=== PATIENT | female | born 1970 | race Caucasian/White ===

== ENCOUNTER 2023-05-11 08:29 | Outpatient (RCR) | payer BC, SELFPAY ==
[2023-01-04 08:43] LABS: Estradiol Premenol Female <20 pg/mL
[2023-01-04 17:24] LABS: Follicle Stimulating Hormone 76.1 IU/L; Luteinizing Hormone, Serum 56.1 IU/L
--- NOTE | 2023-01-08 15:13 | ONC.NURNOTE ---
Reviewed Oncotype results with Dr. Quintero. Patient informed that her score was 16 and there is no apparent benefit for chemotherapy. Appointment scheduled for 01/13 at 9AM to discuss results further. Patient informed that we will place a referral to Radiation Oncology and they will call her to set up an appointment. Patient expresses concern about her lumpectomy incision. She denies redness, drainage, pain, fever, etc. But she feels that it is taking a long time to heal and almost looks like it is going to open up. I encouraged her to call her surgeons office to see if they feel she should be evaluated. Patient verbalizes understanding.
[2023-02-20 11:10] LABS: Estradiol Premenol Female <20 pg/mL
[2023-02-20 21:51] LABS: Luteinizing Hormone, Serum 49.3 IU/L
[2023-05-11 15:36] LABS: Basophils Absolute Auto 0.05 K/uL (0.00-0.30); Basophils Percent Auto 0.6 % (0.0-3.0); Eosinophils Absolute Auto 0.29 K/uL (0.00-0.50); Eosinophils Percent Auto 3.6 % (0.0-7.0); Hemoglobin* 13.4 gm/dL (12.0-16.0); Immature Granulocytes Abs Auto 0.05 K/uL (0.00-0.30); Immature Granulocytes Pct Auto 0.6 %; Lymphocytes Percent Auto 24.6 % (20-44); Mean Corpuscular HGB Conc 34 gm/dL (32-36); Mean Corpuscular Hemoglobin 29 pg (26-34); Mean Corpuscular Volume 86 fL (80-100); Monocytes Percent Auto 10.7 % (0.0-11.0); Neutrophils Absolute Auto 4.87 K/uL (1.7-7.0); Neutrophils Percent Auto 59.9 % (42.0-72.0); Platelet Count* 316 K/uL (140-440); Red Blood Count 4.63 m/uL (4.00-5.20); White Blood Count* 8.13 K/uL (4.50-11.00)
[2023-05-11 15:42] LABS: Slide Review Reflex No
[2023-05-11 15:54] LABS: Albumin* 4.5 g/dL (3.3-5.0); Chloride* 105 mmol/L (96-114); Sodium* 139 mmol/L (135-149)
[2023-05-11 15:55] LABS: Potassium* 3.8 mmol/L (3.6-5.1)
[2023-05-11 15:57] LABS: Alkaline Phosphatase* 103 U/L (40-150); Aspartate Amino Transferase* 56 U/L (12-35); Bilirubin Total* 0.5 mg/dL (0.1-1.5); Blood Urea Nitrogen* 14 mg/dL (7-30); Calcium* 9.4 mg/dL (8.4-10.6); Carbon Dioxide* 28 mmol/L (20-32); Creatinine* 0.7 mg/dL (0.5-1.5); Estimated Glomerular Filt Rate 102 ml/min; Glucose* 95 mg/dL (60-115); Lactate Dehydrogenase* 209 U/L (120-246); Total Protein* 7.5 g/dL (6.0-8.3)
[2023-05-11 15:58] LABS: Alanine Aminotransferase* 77 U/L (4-35)
== END 2023-06-30 23:59 | disposition home or self-care (01) ==
LOC: CCIC 08:29
PROVIDERS: PCP Nurse Practitioner Family; Referring Provider Nurse Practitioner Family; Visit Provider Internal Medicine Hematology & Oncology
DX: C50.912 Malignant neoplasm of unspecified site of left female breast (principal); Z17.0 Estrogen receptor positive status [ER+]; Z79.811 Long term (current) use of aromatase inhibitors; L59.8 Other specified disorders of the skin and subcutaneous tissue related to radiation; R23.2 Flushing; C91.10 Chronic lymphocytic leukemia of B-cell type not having achieved remission
CPT/HCPCS: 36415; 80053; 82670; 83001; 83002; 83615; 85025; 99202; 99204; 99205; 99212; 99214; 99215

== ENCOUNTER 2023-11-26 14:00 | Outpatient (RCR) | payer BC, SELFPAY ==
[2023-08-24 14:56] LABS: Basophils Absolute Auto 0.04 K/uL (0.00-0.30); Basophils Percent Auto 0.5 % (0.0-3.0); Eosinophils Absolute Auto 0.26 K/uL (0.00-0.50); Eosinophils Percent Auto 3.1 % (0.0-7.0); Hematocrit 39.5 % (33.0-51.0); Hemoglobin* 13.2 gm/dL (12.0-16.0); Immature Granulocytes Abs Auto 0.08 K/uL (0.00-0.30); Lymphocytes Absolute Auto 2.19 K/uL (0.90-2.90); Lymphocytes Percent Auto 26.1 % (20-44); Mean Corpuscular HGB Conc 33 gm/dL (32-36); Mean Corpuscular Hemoglobin 29 pg (26-34); Mean Corpuscular Volume 87 fL (80-100); Neutrophils Absolute Auto 4.97 K/uL (1.7-7.0); Neutrophils Percent Auto 59.3 % (42.0-72.0); Platelet Count* 343 K/uL (140-440); Red Blood Count 4.54 m/uL (4.00-5.20); White Blood Count* 8.38 K/uL (4.50-11.00)
[2023-08-24 15:07] LABS: Albumin* 4.7 g/dL (3.3-5.0); Chloride* 103 mmol/L (96-114)
[2023-08-24 15:08] LABS: Sodium* 141 mmol/L (135-149)
[2023-08-24 15:10] LABS: Anion Gap 12 mEq/L (7-15); Aspartate Amino Transferase* 53 U/L (12-35); Bilirubin Total* 0.3 mg/dL (0.1-1.5); Carbon Dioxide* 26 mmol/L (20-32); Creatinine* 0.6 mg/dL (0.5-1.5); Estimated Glomerular Filt Rate 106 ml/min
[2023-08-24 15:11] LABS: Alanine Aminotransferase* 66 U/L (4-35); Alkaline Phosphatase* 120 U/L (40-150); Blood Urea Nitrogen* 11 mg/dL (7-30); Glucose* 105 mg/dL (60-115); Lactate Dehydrogenase* 218 U/L (120-246); Total Protein* 7.6 g/dL (6.0-8.3)
[2023-08-24 15:18] LABS: Slide Review Reflex No
[2023-08-24 16:37] LABS: Potassium* 3.7 mmol/L (3.6-5.1)
[2023-11-26 14:45] LABS: Basophils Absolute Auto 0.03 K/uL (0.00-0.30); Basophils Percent Auto 0.3 % (0.0-3.0); Eosinophils Absolute Auto 0.25 K/uL (0.00-0.50); Eosinophils Percent Auto 2.9 % (0.0-7.0); Hematocrit 40.8 % (33.0-51.0); Hemoglobin* 13.6 gm/dL (12.0-16.0); Immature Granulocytes Abs Auto 0.08 K/uL (0.00-0.30); Immature Granulocytes Pct Auto 0.9 %; Lymphocytes Percent Auto 26.5 % (20-44); Mean Corpuscular HGB Conc 33 gm/dL (32-36); Mean Corpuscular Hemoglobin 29 pg (26-34); Mean Corpuscular Volume 86 fL (80-100); Monocytes Percent Auto 9.6 % (0.0-11.0); Neutrophils Absolute Auto 5.19 K/uL (1.7-7.0); Neutrophils Percent Auto 59.8 % (42.0-72.0); Platelet Count* 338 K/uL (140-440); RDW Coefficient of Variation % 12.9 % (11.5-15.5); Red Blood Count 4.74 m/uL (4.00-5.20); White Blood Count* 8.68 K/uL (4.50-11.00)
[2023-11-26 14:49] LABS: Slide Review Reflex No
[2023-11-26 15:02] LABS: Albumin* 4.8 g/dL (3.3-5.0)
[2023-11-26 15:03] LABS: Chloride* 101 mmol/L (96-114); Potassium* 4.2 mmol/L (3.6-5.1); Sodium* 139 mmol/L (135-149)
[2023-11-26 15:05] LABS: Anion Gap 11 mEq/L (7-15); Bilirubin Total* 0.6 mg/dL (0.1-1.5); Carbon Dioxide* 27 mmol/L (20-32); Creatinine* 0.9 mg/dL (0.5-1.5); Estimated Glomerular Filt Rate 76 ml/min
[2023-11-26 15:06] LABS: Alanine Aminotransferase* 63 U/L (4-35); Alkaline Phosphatase* 112 U/L (40-150); Aspartate Amino Transferase* 45 U/L (12-35); Blood Urea Nitrogen* 15 mg/dL (7-30); Glucose* 100 mg/dL (60-115); Lactate Dehydrogenase* 199 U/L (120-246)
== END 2024-02-20 23:59 | disposition home or self-care (01) ==
LOC: CCIC 14:00
PROVIDERS: PCP Nurse Practitioner Family; Referring Provider Nurse Practitioner Family; Visit Provider Physician Assistant
DX: C50.912 Malignant neoplasm of unspecified site of left female breast (principal); Z17.0 Estrogen receptor positive status [ER+]; Z79.811 Long term (current) use of aromatase inhibitors; C91.10 Chronic lymphocytic leukemia of B-cell type not having achieved remission; R23.2 Flushing; L81.9 Disorder of pigmentation, unspecified; L98.9 Disorder of the skin and subcutaneous tissue, unspecified; R79.89 Other specified abnormal findings of blood chemistry; K76.0 Fatty (change of) liver, not elsewhere classified
CPT/HCPCS: 36415; 80053; 83615; 85025; 99212; 99214; 99215; G0463

== ENCOUNTER 2024-02-09 16:52 | Outpatient (CLI) | payer BC, SELFPAY ==
--- OUTSIDE RECORDS SUMMARY | 2024-02-09 16:55 | XMS_ITS | Clinical Summary ---
Author Name Unknown Organization [facility] Address [place], [place] [address] Care Team Providers Care Fios Line Installer Name Role Phone Carol Medina NP Primary Care Provider Rin Deras MD Unavailable [phone] Tova Bee NP Unavailable Apolonia Macias RN Unavailable Allergies Active Allergy Reactions Criticality Noted Date Comments Morphine Headache Medium 03/22/2014 Extreme headache Medications Medication Sig Dispensed Refills Start Date End Date Status omeprazole (PRILOSEC) 20 mg Delayed-Release capsuleIndications:Ch ronic GERD Take 1 Capsule (20 mg) by mouth once daily before a meal. 180 Capsule 1 07/24/2022 Active cyanocobalamin (VITAMIN B12) 500 mcg tablet Take 500 mcg by mouth once daily. Active cholecalciferol (VITAMIN D3) 2,000 unit capsule Take 2,000 units by mouth once daily. Active gabapentin (NEURONTIN) 100 mg capsuleIndications:Pr otrusion of lumbar intervertebral disc Take 1 capsule in am and 3 capsules at bedtime. 120 Capsule 12/04/2022 Active Active Problems Problem Noted Date Diagnosed Date Other hyperlipidemia 07/25/2022 Lung nodule 06/20/2021 Overview: Recommend f/u CT lung 12 months. CLL (chronic lymphocytic leukemia) (HC)--[facility] sta ge 1 03/31/2021 Overview: Does not want family to know. Please do not discuss during review of problem list for visits Followed by oncology, onset 2019 Calculus of gallbladder with acute on chronic cholecystitis without obstruction 03/31/2021 Status post laparoscopic cholecystectomy 021 Status post laparoscopic appendectomy 03/31/2021 Disorder of appendix 03/30/2021 Status post left carpal tunnel release DOS Dr Márquez 05/07/2020 Carpal tunnel syndrome, bilateral 04/04/2020 Carpal tunnel syndrome on right 04/04/2020 S/P partial thyroidectomy 08/17/2017 Vitamin D deficiency 07/15/2010 Encounter for screening colonoscopy Gastritis Breast nodule Resolved Problems Problem Noted Date Diagnosed Date Resolved Date Gallstones 04/02/2015 03/31/2021 Immunizations Name Administration Dates Next Due COVID-19 vaccine ([id number]-J&J) NORBERTO SPIVEY COVID-19 vaccine ([employer] 30mcg/0.3mL) 12YO+ BIVALENT NORBERTO SPIVEY 07/24/2022 Pneumococcal Conj 20-valent (Prevnar 20) 022 Pneumococcal Poly,23-Valent (Pneumovax) 08/17/20 17 Td (Age >=7 Years) 07/05/2020 Tdap 07/15/2010 Zoster (Shingrix-RZV, recombinant) 09/05/2020, Family History Medical History Relation Name Comments Hypertension Brother 3 Hyperlipidemia Brother 4 Hyperlipidemia Father Hypertension Father Other Father Seizures Maternal Aunt Diabetes Maternal Grandfather Heart Disease Maternal Grandfather Hypertension Mother Other Mother Cancer-colon Paternal Aunt 1 50s Diabetes Paternal Aunt 2 Other Paternal Grandfather brain a nerisum Other Paternal Grandmother stomach e anerisum Cancer-breast No Family History Relation Name Status Comments Brother 1 Alive Brother 2 Alive Brother 3 Brother 4 Father Alive kidney stones Maternal Aunt Maternal Grandfather Maternal Grandmother Mother Alive kidney stones Paternal Aunt 1 Paternal Aunt 2 Paternal Grandfather Paternal Grandmother Son 1 Alive Son 2 Alive Social History Tobacco Use Types Packs/Day Years Used Date Smoking Tobacco: Former Cigarettes Q uit: 10/15/2019 Smokeless Tobacco: Never Tobacco Cessation:Counseling Given: Not Answered Comments:thinks about quitting someday Alcohol Use Standard Drinks/Week Comments Yes 0 (1 standard drink = 0.6 oz pur e alcohol) social PHQ-2 Answer Date Recorded PHQ-2 TOTAL SCORE 0 07/24/2022 Social Connections Answer Date Recorded Frequency of Communication with Friends and Fami ly Not on file 10/05/2021 Financial Resource Strain Answer Date R ecorded Difficulty of Paying Living Expenses Not on file 10/05/2021 Difficulty of Paying Living Expenses Not on file 10/05/2021 Sex and Gender Information Value Date Recorded Sex Assigned at Not on file Gender Identity Not on file Sexual Orientation Not on file Obstetrics History Last Filed Vital Signs Vital Sign Reading Time Taken Comments Blood Pressure 138/86 12/24/2022 9:11 AM CDT Pulse 92 12/24/2022 9:11 AM CDT Temperature 36.7 ??C (98.1 ??F) 12/24/2022 9:11 AM CD T Respiratory Rate 16 12/10/2022 4:23 PM BEHAVIORAL HEALTH ASSOCIATE Oxygen Saturation 93% 12/10/2022 4:23 PM BEHAVIORAL HEALTH ASSOCIATE Inhaled Oxygen Concentration - - Weight 94.6 kg (208 lb 9.6 oz) 12/24/2022 9:11 A M CDT Height 172.7 cm (5' 8) 12/10/2022 10:34 AM BEHAVIORAL HEALTH ASSOCIATE Body Mass Index 31.72 12/10/2022 10:34 AM BEHAVIORAL HEALTH ASSOCIATE Plan of Treatment Health Maintenance Due Date Last Done Comments HIV for age 15-65 1983 COVID-19 vaccine series ( season) 2023 07/24/2022, 08/15/2021, 01/02/2021 Depression screening for age 12+ 07/25/2023 07/25/2022, 07/24/2022, 07/06/2020, Additional history exists Mammogram for age 45-75 11/24/2023 11/24/19, 07/11/2022, 07/03/2021, Additional history exists BMI (ht and wt on same day) for age 18+ 11/28/2023 11/28/2022, 10/01/2022, 09/16/2022, Additional history exists Influenza for age 50-64 06/05/2024 Lipids for age 45-75 07/24/2027 07/24/2022, 07/04/2021, 07/05/2020, Additional history exists Colonoscopy through age 75 05/06/2028 05/06/2018 Tetanus booster 07/05/2030 07/05/2020, 07/15/2010 Tdap Completed 07/15/2010 Zoster (shingles) series for age 50+ Completed 09/05/2020, 07/05/2020 Hepatitis C screening for ag e 18-79 Completed 07/24/2022 Pneumococcal series for age 6-64 Completed 07/24/20, 08/17/2017 Procedures Procedure Name Priority Date/Time Associated Diagnosis Comments XR MAMMO ANDRE BILAT DIAG DEXTER 11/24/2022 12:24 PM BEHAVIORAL HEALTH ASSOCIATE Primary cancer of left breast (HC) ANTI HCV Routine 07/24/2022 3:12 PM CDT Need for hepatitis C screening test LIPID PANEL W REFLEX MEASURED LDL Routine 07/24/2022 3:12 PM CDT Routine general medical examination at health care facility COLONOSCOPY 05/06/2018 8:29 AM CDT from Last 3 Months or Most Recently Relevant to Health Maintenance Results * XR MAMMO ANDRE DIAG BILAT (11/24/2022 12:24 PM BEHAVIORAL HEALTH ASSOCIATE) Anatomical Region Laterality Modality BREASTS, Breast Left, Breast Right Bilateral Mammography 11/24/2022 1:13 PM BEHAVIORAL HEALTH ASSOCIATE Narrative 11/25/2022 7:57 AM BEHAVIORAL HEALTH ASSOCIATE As a result of the Century Cures Act, medical imaging exams and procedure reports are released immediately into your electronic medical record. ??You may view this report before your referring provider. ??If you have questions, please contact your health care provider. BILATERAL BREAST MAMMOGRAM DIGITAL DIAGNOSTIC WITH COMPUTER-AIDED DETECTION AND TOMOSYNTHESIS 11/24/2022 ?? BILATERAL BREAST ULTRASOUND 11/24/2022 LEFT AXILLA ULTRASOUND 11/24/2022 CLINICAL HISTORY: New diagnosis LEFT breast cancer by surgical excision. Margins positive. Here today for MR biopsy of each breast but unable to tolerate MRI. Therefore, here for ultrasound of each breast and ultrasound LEFT axilla. Surgical excision LEFT breast was in the immediate subareolar tissue. COMPARISON: 07/11/2022, 07/03/2021, breast MRI 11/12/2022. TECHNIQUE: Digital BILATERAL mammogram in multiple projections. Computer-aided detection and tomosynthesis were used. Real-time ultrasound imaging of the RIGHT and LEFT breast and LEFT axilla with imaging documentation. Scanning was performed by both the technologist and the radiologist. BREAST COMPOSITION: There are scattered areas of fibroglandular density. FINDINGS: BILATERAL mammogram: RIGHT breast: Possible mass RIGHT upper outer breast. This mass is adjacent to a small calcification. Location 5 cm from the nipple on the CC view. LEFT breast: Focal asymmetry LEFT upper outer breast lateral to the surgical site extending approximately 3 cm. RIGHT breast ultrasound: RIGHT breast ultrasound targeted to the 9 o'clock position 3 cm from the nipple shows a solid mass 0.6 x 0.6 x 0.6 cm. I believe this is the correlate for the MRI-detected mass. Margins are indistinct. LEFT breast ultrasound: Ultrasound targeted to the upper outer LEFT breast shows a vague area of shadowing with correlates with the MR enhancement. Most prominent this is at 2 o'clock 2 cm from the nipple. Ultrasound LEFT axilla: Multiple lymph nodes are present in the LEFT axilla. Minimal cortical thickening. No suspicious or dominant lymph node identified. IMPRESSION AND RECOMMENDATION: 1. RIGHT breast mass 9 o'clock 3 cm from the nipple 0.6 x 0.6 x 0.6 cm. Ultrasound-guided biopsy to follow. 2. Vague shadowing LEFT breast in the area of MRI enhancement ultrasound-guided biopsy to follow. Location 2 o'clock 2 cm from the nipple. 3. Increased number normal nodes LEFT axilla. Biopsy is not recommended. Recommend sampling with sentinel lymph node study at time of surgery. Results and recommendations were discussed with the patient at the time of the exam. BI-RADS Category 4: Suspicious Dictated by: Xochitl Hyman MD @11/24/2022 1:13:13 PM/meet PATIENTS: You will also receive a letter with your examination results in an easy to read format. ??If you have questions about your results, please contact your referring provider. Hollie Cowart MD MAMMO * (ABNORMAL) LIPID PANEL W REFLEX MEASURED LDL (07/24/2022 3:12 PM CDT) CHOLESTEROL,TOTAL 240(H) 100 - 199 mg/dL 07/24/2022 4:09 PM CDT [facility] TRIGLYCERIDES 300(H) <150 mg/dL 07/24/2022 4:09 PM CDT [facility] HDL CHOLESTEROL 49 >40 mg/dL 4:09 PM CDT [facility] NON-HDL CHOLESTEROL 191(H) <145 mg/dl 07/24/2022 4:09 PM CDT [facility] CHOL/HDL RATIO 4.90(H) <4.50 07/24/2022 4:09 PM CDT [facility] LDL CHOLESTEROL 131(H) <=130 mg/dL 07/24/2022 4:09 PM CDT [facility] VLDL CHOLESTEROL 60(H) <=30 mg/dL 07/24/2022 4:09 PM CDT [facility] PROVIDER ORDERED STATUS RANDOM 07/24/2022 4:09 PM CDT [facility] Blood BLOOD SPECIMEN / Unknown Venipuncture / Unknown 07/24/2022 3:12 PM CDT 07/24/2022 3:14 PM CDT Carol Medina NP CHEMISTRY [facility] [address] [place] [address] * ANTI HCV (07/24/2022 3:12 PM CDT) HEPATITIS C ANTIBODY Non-React yong Non-React yong 07/26/2022 5:26 PM CDT [facility] Comment:Antibodies to HCV no t detected; does not exclude the possibility of exposure to HCV. Blood BLOOD SPECIMEN / Unknown Venipuncture / Unknown 07/24/2022 3:12 PM CDT 07/24/2022 3:14 PM CDT Carol Arendt CARDIOLOGY RN SEND OUTS [facility] [address] [place] [address], [place] * COLONOSCOPY (05/06/2018 8:29 AM CDT) 05/06/2018 8:29 AM CDT Narrative Transcriptions Rory Alvarez MD - 05/06/2018 9:08 AM CDT Patient Name: Kenyetta Nava Procedure Date: 05/06/2018 Gender: Female Date of : 1970 Admit Type: Ambulatory Procedure: Colonoscopy Proceduralist: Rory Alvarez [facility] Indications/Pre-Op Diagnosis: Screening for colorectal malignantneoplasm Medications: Midazolam 6 mg IV, Fentanyl 100 microgramsIV Procedure Description: The patient had risks, benefits and alternatives explained to andgave informed consent. The patient had a stable cardiopulmonary status and judged an adequate candidate for conscious sedation. The colonoscope was passed through the anus and advanced to thececum, identified by appendiceal orifice and ileocecal valve. Thecolonoscopy was performed without difficulty. The patient tolerated the procedure well. The quality of the bowel preparation was good. The ileocecal valve, appendiceal orifice, and rectum were photographed. Complications: No immediate complications. Estimated Blood Loss & Specimen: Estimated blood loss: none. Specimen collected - None Findings: The perianal and digital rectal examinations were normal. The retroflexed view of the distal rectum and anal verge was normaland showed no anal or rectal abnormalities. The colon (entire examined portion) appeared normal. Impressions/Post-Op Diagnosis: - The entire examined colon is normal. - No specimens collected. Recommendation: - Discharge patient to home. - Resume previous diet. - Continue present medications. - Repeat colonoscopy in 10 years for surveillance. Moderate Sedation: Moderate (conscious) sedation was administered by the endoscopy nurse and supervised by the endoscopist. The following parameters were monitored: oxygen saturation, heart rate, respiratory rate, adequacyof pulmonary ventilation and reponse to care. Please refer to the patient's medical record flowsheets for moderate sedation details. please see sedation report above. Sedation was given under thedirection of the endoscopist. Moderate (conscious) sedation was administered by the endoscopy nurse and supervised by the endoscopist. The following parameters were monitored: oxygen saturation, heart rate, blood pressure, andresponse to care. Total physician intraservice time was 20 minutes. please see sedation report above. Sedation was given under thedirection of the endoscopist. Rory Alvarez, 05/06/2018 9:08:02 AM This report has been signed electronically. Note Initiated On: 05/06/2018 8:29 AM Rory Alvarez MD PROCEDURE ORD from Last 3 Months or Most Recently Relevant to Health Maintenance Advance Directives * Full Code (Latest Code Status on File) Date Activated Date Inactivated Comments 12/10/2022 10:35 AM 12/10/2022 7:01 PM Question Answer Comments Code Status Discussion: Unable to Assess Preferences, Provider to review later * Full Code Date Activated Date Inactivated Comments 11/04/2022 6:13 AM 11/04/2022 12:17 PM Question Answer Comments Code Status Discussion: Unable to Assess Preferences, Provider to review later * Full Code Date Activated Date Inactivated Comments 08/13/2021 6:43 AM 08/13/2021 1:00 PM Question Answer Comments Code Status Discussion: Discussed * Full Code Date Activated Date Inactivated Comments 03/31/2021 12:55 AM 03/31/2021 6:26 PM Question Answer Comments Code Status Discussion: Discussed * Full Code Date Activated Date Inactivated Comments 05/23/2020 6:23 AM 05/23/2020 10:49 AM Care Teams Fios Line Installer Relationship Specialty Start Date End Date Carol Medina NP [address] [place] [address] PCP - General Nurse Practitioner 03/10/19 Rin Deras MD [address] [place] [address] Hematology Hematology and Oncology 07/17/20 Tova Bee NP [address] [place] [address] Hematology Hematology and Oncology 07/17/20 Apolonia Macias, RN [address] [place] [address] Nurse Navigator - Oncology Registered Nurse 11/14/22
--- OUTSIDE RECORDS SUMMARY | 2024-02-09 16:55 | XMS_ITS | Clinical Summary ---
Author Name Unknown Organization [facility] Address [address] [place] [address] Care Team Providers Care Improvement Rn Name Role Phone Unavailable Primary Care Provider Unavailabl e Source Comments Patient records contain information from all sites at [facility]. For routine questions regarding patient records, call [phone] during business hours, M-F 8:00 AM - 5:00 PM Central Time. Record requests for emergency care only can be directed to [phone] at any time.[facility] Allergies Active Allergy Reactions Criticality Noted Date Comments Morphine Headache Medium 03/22/2014 Extreme headache Medications Medication Sig Dispensed Refills Start Date End Date Status omeprazole (PriLOSEC) [address] capsule Take 20 mg by mouth. 07/24/2022 Acti ve cyanocobalamin (VITAMIN B12) 500 mcg tablet Take 500 mcg by mouth. Active cholecalciferol (VITAMIN D3) 50 mcg (2,000 Unit) capsule Take 2,000 Units by mouth. Active mometasone (ELOCON) 0.1 % cream Apply 1 Application topically 2 (two) times a day. Apply to left breast and collar bone area. 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 Cancer Staging:Pathologic stage from 12/10/2022:Stage IIA(pT2, pN1a(sn), cM0, G3, ER+, GA+, HER2-) - Unsigned Resolved Problems Problem Noted Date Diagnosed Date Resolved Date Leukemia Lymphocytic Chronic Remission 01/16/2023 01/16/2023 Family History Medical History Relation Name Comments Colon cancer Aunt Breast cancer Neg Hx Relation Name Status Comments Aunt Social History Tobacco Use Types Packs/Day Years Used Date Smoking Tobacco: Former Cigarettes Q uit: 10/15/2019 Smokeless Tobacco: Never Tobacco Cessation:Counseling Given: Not Answered Nutrition Answer Date Recorded Nutrition: EVOO Fat Source Unknown 01/12 Nutrition: Servings of Fruits/Vegetables per Day Not on file 01/12/2023 Dental Answer Date Recorded Dental: Regular Dentist Unknown 01/13/20 Sex and Gender Information Value Date Recorded Sex Assigned at Not on file Gender Identity Not on file Sexual Orientation Not on file Last Filed Vital Signs Vital Sign Reading Time Taken Comments Blood Pressure 158/82 01/21/2023 3:20 PM CDT Pulse 102 01/21/2023 3:20 PM CDT Temperature 36.5 ??C (97.7 ??F) 02/17/2023 3:33 PM CD T Respiratory Rate - - Oxygen Saturation - - Inhaled Oxygen Concentration - - Weight 97.9 kg (215 lb 13.3 oz) 02/17/2023 3:33 PM CDT Height - - Body Mass Index - - Plan of Treatment Health Maintenance Due Date Last Done Comments CT Colonography 1970 Cologuard 1970 Colonoscopy 1970 Colorectal Cancer Screening 1970 FIT 1970 HIV Screening 1970 Hepatitis C Screening 1970 Hepatitis B Vaccines (1 of 3 - 19+ 3-dose series) 1987 COVID-19 Vaccine ( season) 2023 07/24/2022, 08/15/2021, 01/02/2021 Influenza Vaccine (#1) 2023 Depression Screening (Annual PHQ-2) 10/05/2023 Mammogram 11/24/2023 11/24/2022, 02/2 , 11/24/2022, Additional history exists Fasting Glucose for Diabetes Screening 11/25/2025 11/25/2022, 08/13/2022, 07/24/2022, Additional history exists Lipid (Cholesterol) Screening 07/24/2027 07/24/2022, 07/04/2021, 07/05/2020, Additional history exists DTaP,Tdap,and Td Vaccines (3 - Td or Tdap) 07/05/2030 07/05/2020, 07/15/2010 Zoster Vaccines Completed 09/05/2020, 07/05/2020 Pneumococcal vaccine (0-64 years) Completed 07/24/2022, 08/17/2017 HPV Vaccines Aged Out No longer eligi ble based on patient's age to complete this topic Procedures Procedure Name Priority Date/Time Associated Diagnosis Comments EXTI BASIC METABOLIC PANEL, S/P Routine 11/25/2022 6:41 AM DATA CONVERSION OPERATOR OUTSIDE MG MAMMOGRAM Routine 11/24/2022 12:10 PM DATA CONVERSION OPERATOR EXTI LIPID PANEL W REFLEX MEASURED LDL Routine 07/24/2022 3:12 PM CDT from Last 3 Months or Most Recently Relevant to Health Maintenance Results * XR MAMMO POST CLIP PLCMT BILAT-Outside Mammogram (11/24/2022 12:10 PM DATA CONVERSION OPERATOR) Narrative [facility] - 01/14/2023 7:51 AM CDT This order has been created and auto-finalized to support the import of outside images. If available, original interpretation can be found on the Media Tab in Chart Review, in Document Viewer, or as an image in QREADS. If a re-interpretation or overread is required please follow defined workflow. ?? Provider Not In System IMG BI PROCEDURES [facility] NA from Last 3 Months or Most Recently Relevant to Health Maintenance
--- OUTSIDE RECORDS SUMMARY | 2024-02-09 16:55 | XMS_ITS ---
Author Name Unknown Organization [facility] Address [address] [place] [address] Care Team Providers Care Staff Antisubmarine Officer Name Role Phone Unavailable Unavailable Unavailable Surgery Details Not on file Complications Check Surgery Details section. Procedure Estimated Blood Loss Check Surgery Details section. Procedure Findings Check Surgery Details section. Procedure Specimens Taken Check Surgery Details section.
--- OUTSIDE RECORDS SUMMARY | 2024-02-09 16:55 | XMS_ITS ---
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 Past Plans No past plan information found. Radiation Treatments * Plan Last Treated On Elapsed Days Fractions Treated Prescribed Fraction Dose Prescribed Total Dose [id number] 02/20/2023 24 4 of 4 250 cGy 1,000 cG y [id number] 02/16/2023 20 5 of 5 267 cGy 1,335 cGy [id number] 02/09/2023 13 10 of 10 267 cGy 2,670 cGy Reference Point Last Treated On Elapsed Days Session Dose Total Dose [id number] 02/20/2023 24 250 cGy 5,005 cGy Resolved Problems Problem Noted Date Diagnosed Date Resolved Date Leukemia Lymphocytic Chronic Remission 01/16/2023 01/16/2023
--- OUTSIDE RECORDS SUMMARY | 2024-02-09 16:55 | XMS_ITS | Referral Summary ---
Author Name Unknown Organization [facility] Address [address] [place] [address] Care Team Providers Care Job Training Supervisor Name Role Phone Unavailable Primary Care Provider Unavailabl e Source Comments Patient records contain information from all sites at [facility]. For routine questions regarding patient records, call [phone] during business hours, M-F 8:00 AM - 5:00 PM Central Time. Record requests for emergency care only can be directed to [phone] at any time.[facility] Allergies Active Allergy Reactions Criticality Noted Date [...] from 12/10/2022:Stage IIA(pT2, pN1a(sn), cM0, G3, ER+, [place]+, HER2-) - Unsigned Resolved Problems Problem Noted Date Diagnosed Date Resolved Date Leukemia Lymphocytic Chronic Remission 01/16/2023 01/16/2023 Social History Tobacco Use Types Packs/Day Years [...] Mass Index - - Plan of Treatment Not on file Procedures Procedure Name Priority Date/Time Associated Diagnosis Comments EXTI BASIC METABOLIC PANEL, S/P Routine 11/25/2022 6:41 AM TRANSPLANT CASE MANAGER OUTSIDE MG MAMMOGRAM Routine 11/24/2022 12:10 PM TRANSPLANT CASE MANAGER EXTI LIPID PANEL W REFLEX MEASURED LDL Routine 07/24/2022 3:12 PM CDT from Last 3 Months or Most Recently Relevant to Health Maintenance Results * XR MAMMO POST CLIP PLCMT BILAT-Outside Mammogram (11/24/2022 12:10 PM TRANSPLANT CASE MANAGER) Narrative [facility] - 01/14/2023 7:51 AM CDT [...]
--- NOTE | 2024-02-09 17:20 | MM_ITS ---
Patient: LILLI PACHECO Facility:?[facility] Patient ID:?[id number] Site Patient ID:?[id number] Site :?1970 Study:?XRay-Breast Bilateral 3D W/CAD-02/09/2024 2:46:14 PM Ordering Physician:Zeynep Barrios Final Report: BILATERAL SCREENING MAMMOGRAM WITH COMPUTER-AIDED DETECTION AND TOMOSYNTHESIS TECHNIQUE: CC and MLO views were obtained. These mammographic images have been obtained using full-field digital technique. These mammographic images were interpreted with the benefit of computer-aided detection. Breast Tomosynthesis was used in this interpretation. COMPARISON FILM: 11/24/22, 07/11/22, 07/03/21. FINDINGS: The breasts are heterogeneously dense, which may obscure small masses. IMPRESSION: There is no radiographic evidence for malignancy. ASSESSMENT: BI-RADS Category 2: Benign RECOMMENDATION: Routine screening mammogram in 1 year. A lay language report of this examination will be provided to the patient. Neptali Shane M.D. Diagnostic Radiologist [email or web address] DSM/sp R& Transcribed: 4:03 p.m. SP/Dictated by: Neptali Shane MD @ 02/15/2024 9:42:00 AM Signed by:?Neptali Shane MD @02/15/2024 5:13:42 PM (Electronic Signature)
== END 2024-02-09 16:53 | disposition home or self-care (01) ==
PROVIDERS: PCP Nurse Practitioner Family; Visit Provider Physician Assistant
DX: Z12.31 Encounter for screening mammogram for malignant neoplasm of breast (principal); R92.2 Inconclusive mammogram
CPT/HCPCS: 77063; 77067

== ENCOUNTER 2024-06-20 14:10 | Outpatient (RCR) | payer BC, SELFPAY ==
[2024-02-25 15:15] LABS: Basophils Absolute Auto 0.06 K/uL (0.00-0.30); Basophils Percent Auto 0.6 % (0.0-3.0); Eosinophils Absolute Auto 0.24 K/uL (0.00-0.50); Eosinophils Percent Auto 2.5 % (0.0-7.0); Hematocrit 40.2 % (33.0-51.0); Hemoglobin* 13.6 gm/dL (12.0-16.0); Immature Granulocytes Pct Auto 1.1 %; Lymphocytes Percent Auto 28.7 % (20-44); Mean Corpuscular HGB Conc 34 gm/dL (32-36); Mean Corpuscular Hemoglobin 29 pg (26-34); Mean Corpuscular Volume 86 fL (80-100); Monocytes Percent Auto 8.1 % (0.0-11.0); Neutrophils Absolute Auto 5.56 K/uL (1.7-7.0); Platelet Count* 321 K/uL (140-440); Red Blood Count 4.68 m/uL (4.00-5.20); White Blood Count* 9.42 K/uL (4.50-11.00)
[2024-02-25 15:16] LABS: Slide Review Reflex No
[2024-02-25 15:28] LABS: Chloride* 107 mmol/L (96-114); Sodium* 139 mmol/L (135-149)
[2024-02-25 15:29] LABS: Potassium* 3.9 mmol/L (3.6-5.1)
[2024-02-25 15:31] LABS: Alkaline Phosphatase* 98 U/L (40-150); Anion Gap 9 mEq/L (7-15); Aspartate Amino Transferase* 46 U/L (12-35); Bilirubin Total* 0.7 mg/dL (0.1-1.5); Blood Urea Nitrogen* 17 mg/dL (7-30); Carbon Dioxide* 23 mmol/L (20-32); Creatinine* 0.8 mg/dL (0.5-1.5); Est. Creatinine Clearance* 80.15; Estimated Glomerular Filt Rate 87 ml/min; Lactate Dehydrogenase* 192 U/L (120-246); Total Protein* 8.3 g/dL (6.0-8.3)
[2024-02-25 15:32] LABS: Alanine Aminotransferase* 59 U/L (4-35); Calcium* 9.4 mg/dL (8.4-10.6); Glucose* 100 mg/dL (60-115)
[2024-06-20 13:57] LABS: Basophils Absolute Auto 0.06 K/uL (0.00-0.30); Basophils Percent Auto 0.7 % (0.0-3.0); Eosinophils Absolute Auto 0.26 K/uL (0.00-0.50); Eosinophils Percent Auto 2.9 % (0.0-7.0); Hematocrit 40.2 % (33.0-51.0); Hemoglobin* 13.5 gm/dL (12.0-16.0); Immature Granulocytes Abs Auto 0.04 K/uL (0.00-0.30); Immature Granulocytes Pct Auto 0.4 %; Lymphocytes Absolute Auto 2.53 K/uL (0.90-2.90); Lymphocytes Percent Auto 27.9 % (20-44); Mean Corpuscular HGB Conc 34 gm/dL (32-36); Mean Corpuscular Hemoglobin 29 pg (26-34); Mean Corpuscular Volume 87 fL (80-100); Monocytes Percent Auto 8.6 % (0.0-11.0); Neutrophils Percent Auto 59.5 % (42.0-72.0); Platelet Count* 299 K/uL (140-440); RDW Coefficient of Variation % 12.9 % (11.5-15.5); Red Blood Count 4.64 m/uL (4.00-5.20); White Blood Count* 9.07 K/uL (4.50-11.00)
[2024-06-20 14:01] LABS: Slide Review Reflex No
[2024-06-20 14:23] LABS: Albumin* 4.7 g/dL (3.3-5.0); Chloride* 103 mmol/L (96-114); Potassium* 3.5 mmol/L (3.6-5.1); Sodium* 139 mmol/L (135-149)
[2024-06-20 14:25] LABS: Creatinine* 0.7 mg/dL (0.5-1.5); Est. Creatinine Clearance* 90.53; Estimated Glomerular Filt Rate 101 ml/min
[2024-06-20 14:26] LABS: Alanine Aminotransferase* 85 U/L (4-35); Alkaline Phosphatase* 115 U/L (40-150); Anion Gap 9 mEq/L (7-15); Aspartate Amino Transferase* 57 U/L (12-35); Bilirubin Total* 0.5 mg/dL (0.1-1.5); Blood Urea Nitrogen* 12 mg/dL (7-30); Carbon Dioxide* 27 mmol/L (20-32); Glucose* 101 mg/dL (60-115); Lactate Dehydrogenase* 200 U/L (120-246); Total Protein* 7.6 g/dL (6.0-8.3)
[2024-06-20 14:27] LABS: Calcium* 9.3 mg/dL (8.4-10.6)
--- NOTE | 2024-06-20 15:45 | ONC.NURNOTE ---
Labs faxed to Dr. Bloom at [facility] regarding pt's elevated LFTs. Pt started on Wegovy recently. Jyoti ordering liver ultrasound.
--- NOTE | 2024-07-14 13:37 | ONC.NURNOTE ---
Left message with pt regarding scheduling abd ultrasound. Radiology stated they have left a message with pt x2. Instructed pt to call and schedule ultrasound.
--- NOTE | 2024-07-25 15:38 | ONC.NURNOTE ---
Left message with pt to call for results of abdominal ultrasound. Per, Jyoit Prater PA-C, there is no evidence of cancer, pt should follow up with her primary care provider regarding her fatty liver.
== END 2024-08-23 23:59 | disposition home or self-care (01) ==
LOC: CCIC 14:10
PROVIDERS: PCP Nurse Practitioner Family; Referring Provider Nurse Practitioner Family; Visit Provider Physician Assistant
DX: C50.912 Malignant neoplasm of unspecified site of left female breast (principal); C91.10 Chronic lymphocytic leukemia of B-cell type not having achieved remission; R23.2 Flushing; R79.89 Other specified abnormal findings of blood chemistry; K76.0 Fatty (change of) liver, not elsewhere classified; Z79.811 Long term (current) use of aromatase inhibitors; Z17.0 Estrogen receptor positive status [ER+]
CPT/HCPCS: 36415; 80053; 83615; 85025; 99215; G0463

== ENCOUNTER 2024-07-21 07:10 | Outpatient (CLI) | payer BC, SELFPAY ==
--- OUTSIDE RECORDS SUMMARY | 2024-07-21 07:13 | XMS_ITS | Clinical Summary ---
Author Organization [employer] [facility] [employer] [facility] Address [place], [place] [address] Care Team Providers Care Concrete Vibrator Operator Name Role Phone Rin Deras MD Unavailable [phone] Tova Bee NP Unavailable Apolonia Macias RN Unavailable Rochelle Jimenez MD Primary Care Provider Allergies Active Allergy Reactions Criticality Noted Date Comments Morphine Headache Medium 03/22/2014 Extreme headache Medications Medication Sig Dispensed Refills Start Date End Date Status cyanocobalamin (VITAMIN B12) 500 mcg tablet Take 500 mcg by mouth once daily. Active cholecalciferol (VITAMIN D3) 2,000 unit capsule Take 2,000 units by mouth once daily. Active anastrozole (ARIMIDEX) 1 mg tablet Take 1 mg by mouth once daily. 4 Active oxybutynin (DITROPAN) 5 mg tablet Take 5 mg by mouth two times daily. 4 Active semaglutide (Wegovy) 0.25 mg/0.5 mL penIndications:Ob esity (BMI 30.0-34.9) Inject 0.25 mg subcutaneous once weekly. 2 mL 4 Active semaglutide, weight loss, (Wegovy) 0.5 mg/0.5 mL penIndications:Ob esity (BMI 30.0-34.9) Inject 0.5 mg subcutaneous once weekly. 2 mL 4 Active semaglutide, weight loss, (Wegovy) 1 mg/0.5 mL penIndications:Ob esity (BMI 30.0-34.9) Inject 1 mg subcutaneous once weekly. 2 mL 4 Active semaglutide, weight loss, (Wegovy) 2.4 mg/0.75 mL penIndications:Ob esity (BMI 30.0-34.9) Inject 2.4 mg subcutaneous once weekly. 3 mL 8 4 Active omeprazole (PRILOSEC) 20 mg Delayed-Release capsuleIndication s:Chronic GERD Take 1 Capsule (20 mg) by mouth two times daily before meals. 200 Capsule 3 4 Active Wegovy 1.7 mg/0.75 mL subcutaneous penIndications:Ob esity (BMI 30.0-34.9) INJECT 1.7 MG UNDER THE SKIN ONCE WEEKLY 3 mL 4 Active semaglutide, weight loss, (Wegovy) 1.7 mg/0.75 mL penIndications:Ob esity (BMI 30.0-34.9) Inject 1.7 mg subcutaneous once weekly. 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 CLL (chronic lymphocytic leukemia) (HC)--Kamara sta ge 1 03/31/2021 Overview (08/05/2021): Does not want family to know. Please [...] Diagnosed Date Resolved Date Gallstones 04/02/2015 03/31/2021 Encounters Date Type Department Care Team Description 07/14/2024 Refill [facility] [address] [place] [address] Rochelle Jimenez MD Refill Request (Wegovy) 06/22/2024 Telephone [facility] [address] [place] [address] Rochelle Jimenez MD Appointment Reminder 06/20/2024 Orders Only [facility] Scanner 1 scan: (1-Ord) [facility], MULTIPLE LAB RESULTS, 06/20/2024 from Last 3 Months Immunizations Name Administration Dates Next Due COVID-19 vaccine (Adele-J&J) NORBERTO SPIVEY COVID-19 vaccine (Edevate-Bio NTech 30mcg/0.3mL) 12YO+ BIVALENT NORBERTO SPIVEY 07/24/2022 Pneumococcal [...] of Communication with Friends and Fami ly 0 03/30/2024 Financial Resource Strain Answer Date R ecorded Difficulty of Paying Living Expenses 3 03/30/2024 Difficulty of Paying Living Expenses Not on file 03/30/2024 Food Insecurity Answer Date Recorded Worried About Running Out of Food in the Last Ye ar 1 03/30/2024 Transportation Needs Answer Date Record ed Lack of Transportation (Medical) 1 03/30/2024 Housing Stability Answer Date Recorded Unable to Pay for Housing in the Last Year 1 03/30/2024 Sex and Gender Information Value Date Recorded Sex Assigned at Not on file Gender Identity Not on file Sexual Orientation Not on file Obstetrics History Last Filed Vital Signs Vital Sign Reading Time Taken Comments Blood Pressure 118/77 03/30/2024 1:46 PM CDT Pulse 94 03/30/2024 1:46 PM CDT Temperature 36.7 ??C (98.1 ??F) 12/24/2022 9:11 AM CD T Respiratory Rate 16 12/10/2022 4:23 PM CLOTHES PRESSER Oxygen Saturation 97% 03/30/2024 1:46 PM CDT Inhaled Oxygen Concentration - - Weight 96 kg (211 lb 9.6 oz) 03/30/2024 1:46 PM CDT Height 173.4 cm (5' 8.25) 03/30/2024 1:46 PM CD T Body Mass Index 31.94 03/30/2024 1:46 PM CDT Plan of Treatment Upcoming Encounters Date Type Department Care Team (Late st Contact Info) Description 07/25/2024 3:35 PM CDT Office Visit [facility] [address] [place] [address] Rochelle Jimenez MD [address] [place] [address] Health Maintenance Due Date Last Done Comments HIV for age 15-65 1983 Depression screening for age 12+ 07/25/2023 07/25/2022, 07/24/2022, 07/06/2020, Additional history exists COVID-19 vaccine series ( season) 2024 07/24/2022, 08/15/2021, 01/02/2021 Influenza for age 50-64 06/05/2024 Mammogram for age 45-75 02/08/2025 02/09/20 24, 11/24/2022, 07/11/2022, Additional history exists BMI (ht and wt on same day) for age 18+ 03/30/2025 03/30/2024, 11/28/2022, 10/01/2022, Additional history exists Colonoscopy through age 75 05/06/2028 05/06/2018 Lipids for age 45-75 03/30/2029 03/30/2024, 03/30/2024, 07/24/2022, Additional history exists Tetanus booster 07/05/2030 07/05/2020, 07/15/2010 Tdap Completed 07/15/2010 Zoster (shingles) series for age 50+ Completed 09/05/2020, 07/05/2020 Hepatitis C screening for ag e 18-79 Completed 07/24/2022 Pneumococcal series for age 6-64 Completed 07/24/20 22, 08/17/2017 Procedures Procedure Name Priority Date/Time Associated Diagnosis Comments SCAN-LABORATORY REPORT 06/20/2024 12:00 AM CDT LIPID PANEL W REFLEX MEASURED LDL Routine 03/30/2024 2:48 PM CDT Other hyperlipidemia SCAN-MAMMOGRAPHY REPORT 02/09/2024 12:00 AM CDT ANTI HCV Routine 07/24/2022 3:12 PM CDT Need for hepatitis C screening test COLONOSCOPY 05/06/2018 8:29 AM CDT from Last 3 Months or Most Recently Relevant to Health Maintenance Results * SCAN-LABORATORY REPORT (06/20/2024 12:00 AM CDT) Scanner OTHER * (ABNORMAL) LIPID PANEL W REFLEX MEASURED LDL (03/30/2024 2:48 PM CDT) CHOLESTEROL,TOTAL 230(H) 100 - 199 mg/dL 03/31/2024 1:12 AM CDT [facility] Comment: Cholesterol, Total Reference Ranges Desirable <200 mg/dL Borderline 200-239 mg/dL High >=240 mg/dL TRIGLYCERIDES 423(H) <150 mg/dL 03/31/2024 1:12 AM CDT [facility] HDL CHOLESTEROL 44 >40 mg/dL 4 1:12 AM CDT [facility] NON-HDL CHOLESTEROL 186(H) <145 mg/dl 03/31/2024 1:12 AM CDT [facility] CHOL/HDL RATIO 5.23(H) <4.50 03/31/2024 1:12 AM CDT [facility] LDL CHOLESTEROL 4 1:12 AM CDT [facility] Comment:Invalid LDL when Tri g >400. VLDL CHOLESTEROL COMMENT 03/31/2024 1:12 AM CDT [facility] Comment:Unable to calculate VLDL. PROVIDER ORDERED STATUS RANDOM 03/31/2024 1:12 AM CDT [facility] Blood BLOOD SPECIMEN / Unknown Venipuncture / Unknown 03/30/2024 2:48 PM CDT 03/30/2024 2:50 PM CDT Rochelle Jimenez MD [facility] [address] [place] [id number], * SCAN-MAMMOGRAPHY REPORT (02/09/2024 12:00 AM CDT) Anatomical Region Laterality Modality Other Scanner OTHER * ANTI HCV (07/24/2022 3:12 PM CDT) HEPATITIS C ANTIBODY Non-React yong Non-React yong 07/26/2022 5:26 PM CDT [facility] Comment:Antibodies to HCV no t detected; does not exclude the possibility of exposure to HCV. Blood BLOOD SPECIMEN / Unknown Venipuncture / Unknown 07/24/2022 3:12 PM CDT 07/24/2022 3:14 PM CDT Carol Carol MIXER LEVER OPERATOR SEND OUTS [facility] [address] [place] [address], [place] * COLONOSCOPY (05/06/2018 8:29 AM CDT) 05/06/2018 8:29 AM CDT Narrative Transcriptions Rory Alvarez MD - 05/06/2018 9:08 AM CDT Patient Name: Kenyetta Nava Procedure Date: 05/06/2018 Gender: Female Date of : 1970 Admit Type: Ambulatory Procedure: Colonoscopy Proceduralist: Rory Parker Indications/Pre-Op Diagnosis: Screening for colorectal malignantneoplasm Medications: [...] was given under thedirection of the endoscopist. Rroy Alvarez, 05/06/2018 9:08:02 AM This report has [...] 6:23 AM 05/23/2020 10:49 AM Care Teams Concrete Vibrator Operator Relationship Specialty Start Date End Date Rochelle Jimenez MD [address] [place] [address] PCP - General Family Practice 04/15/24 Rin Deras MD [address] [place] [address] Hematology Hematology and Oncology 07/17/20 Tova Bee NP [address] [place] [address] Hematology Hematology and Oncology 07/17/20 Apolonia Macias, RN [address] [place] [address] Nurse Navigator - Oncology Registered Nurse 11/14/22
--- OUTSIDE RECORDS SUMMARY | 2024-07-21 07:13 | XMS_ITS ---
Author Organization [facility] Address [address] [place] [address] Care Team Providers Care Die Stamping Press Operator Name Role Phone Unavailable Unavailable Unavailable Surgery Details Not on file Complications Check Surgery Details section. Procedure Estimated Blood Loss Check Surgery Details section. Procedure Findings Check Surgery Details section. Procedure Specimens Taken Check Surgery Details section.
--- OUTSIDE RECORDS SUMMARY | 2024-07-21 07:13 | XMS_ITS | Clinical Summary ---
Author Organization [facility] Address [address] [place] [address] Care Team Providers Care Slip Bridge Operator Name Role Phone Unavailable Primary Care Provider Unavailabl e Source Comments Patient records contain information from all sites at [facility]. For routine questions regarding patient records, call [phone] during business hours, M-F 8:00 AM - 5:00 PM Central Time. Record requests for emergency care only can be directed to [phone] at any time.[facility] Allergies Active Allergy Reactions Criticality Noted Date Comments Morphine Headache Medium 03/22/2014 Extreme headache Medications omeprazole (PriLOSEC) [address] capsule Take 20 mg by mouth. 2 Active cyanocobalamin (VITAMIN B12) 500 mcg tablet Take 500 mcg by mouth. Active cholecalciferol (VITAMIN D3) 50 mcg (2,000 Unit) capsule Take 2,000 Units by mouth. Active mometasone (ELOCON) 0.1 % cream Apply 1 Application topically 2 (two) times a day. Apply to left breast and collar bone area. 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 Gender Identity Not on file Sexual Orientation Not on file Occupation Industry Job Start Date Job End Date [place] [employer] Not on file Not on file Not o n file Last Filed Vital Signs Vital Sign [...] Done Comments CT Colonography 1970 Cologuard 1970 FIT 1970 HIV Screening 1970 Hepatitis C Screening 1970 Hepatitis B Vaccines (1 of 3 - 19+ 3-dose series) 1987 Depression Screening (Annual PHQ-2) 10/05/2023 Mammogram 11/24/2023 11/24/2022, 02, 11/24/2022, Additional history exists COVID-19 Vaccine ( season) 2024 07/24/2022, 08/15/2021, 01/02/2021 Influenza Vaccine (#1) 2024 Fasting Glucose for Diabetes Screening 11/25/2025 11/25/2022, 08/13/2022, 07/24/2022, Additional history exists Lipid (Cholesterol) Screening 07/24/2027 07/24/2022, 07/04/2021, 07/05/2020, Additional history exists Colonoscopy 05/06/2028 05/06/2018 Colorectal Cancer Screening 05/06/2028 DTaP,Tdap,and Td Vaccines (3 - Td or Tdap) 07/05/2030 07/05/2020, 07/15/2010 Zoster Vaccines Completed 09/05/2020, 07/05/2020 Pneumococcal vaccine (0-64 years) Completed 07/24/2022, 08/17/2017 HPV Vaccines Aged Out No longer eligi ble based on patient's age to complete this topic Procedures Procedure Name Priority Date/Time Associated Diagnosis Comments OUTSIDE MG MAMMOGRAM Routine 11/24/2022 12:10 PM ICE HOCKEY COACH from Last 3 Months or Most Recently Relevant to Health Maintenance Results * XR MAMMO POST CLIP PLCMT BILAT-Outside Mammogram (11/24/2022 12:10 PM ICE HOCKEY COACH) Narrative [facility] - 01/14/2023 7:51 AM CDT This order has been created and auto-finalized to support the import of outside images. If available, original interpretation can be found on the Media Tab in Chart Review, in Document Viewer, or as an image in QREADS. If a re-interpretation or overread is required please follow defined workflow. ?? us Provider Not In System IMG BI PROCEDURES Final R esult [facility] NA from Last 3 Months or Most Recently Relevant to Health Maintenance Insurance [facility]
--- OUTSIDE RECORDS SUMMARY | 2024-07-21 07:13 | XMS_ITS | Referral Summary ---
Author Organization [facility] Address [address] [place] [address] Care Team Providers Care Java Portal Developer Name Role Phone Unavailable Primary Care Provider Unavailabl e Source Comments Patient records contain information from all sites at [facility]. For routine questions regarding patient records, call [phone] during business hours, M-F 8:00 AM - 5:00 PM Central Time. 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 If available, original interpretation can be found on the Media Tab in Chart Review, in Document Viewer, or as an image in [employer]. If a re-interpretation or overread is required please follow defined workflow. ?? us Provider Not In System IMG BI PROCEDURES Final R esult [facility] NA from Last 3 Months or Most Recently Relevant to Health Maintenance Insurance [facility]
--- OUTSIDE RECORDS SUMMARY | 2024-07-21 07:13 | XMS_ITS ---
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 Past Plans No past plan information found. Radiation Treatments * Plan Last Treated On Elapsed Days Fractions Treated Prescribed Fraction Dose Prescribed Total Dose [id number] 02/20/2023 24 4 of 4 250 cGy 1,000 cG y [id number] 02/16/2023 20 5 of 5 267 cGy 1,335 cGy [id number] 02/09/2023 13 10 of 10 267 cGy 2,670 cGy Reference Point Last Treated On Elapsed Days Session Dose Total Dose [id number] 02/20/2023 24 250 cGy 5,005 cGy Resolved Problems Problem Noted Date Diagnosed Date Resolved Date Leukemia Lymphocytic Chronic Remission 01/16/2023 01/16/2023
--- NOTE | 2024-07-21 07:15 | CRLHL7_ITS ---
For Patients: As a result of the Century Cures Act, medical imaging exams and procedure reports are released immediately into your electronic medical record. You may view this report before your referring provider. If you have questions, please contact your health care provider. INDICATION: Elevated LFTs COMPARISON: Outside CT 06/16/2021 TECHNIQUE: Real time mcallister scale imaging and color Doppler analysis was performed of the right upper quadrant. FINDINGS: Liver echotexture is heterogeneously increased without intrahepatic mass. Main portal vein is patent with antegrade flow and measures 9.4 millimeters. There is a normal appearance of the hepatic IVC and proximal abdominal aorta. There is no evidence of ascites. The gallbladder is absent. The common bile duct is of normal size and measures 4.2 mm in diameter at the level of the pamela hepatis. The pancreas appears normal. There is no evidence of a stone or hydronephrosis within the right kidney. The right kidney measures 12.3 cm in length. Parapelvic cyst is present measuring 2.0 x 3.2 x 2.3 cm. IMPRESSION: Hepatic steatosis. No intrahepatic mass. No ascites. Status post cholecystectomy without biliary obstruction. Dictated by Neptali Shane MD @ 07/25/2024 5:58:53 AM (Electronically Signed)
== END 2024-07-21 07:11 | disposition home or self-care (01) ==
LOC: US 07:11
PROVIDERS: PCP Family Medicine; Visit Provider Physician Assistant
DX: R79.89 Other specified abnormal findings of blood chemistry (principal); K76.0 Fatty (change of) liver, not elsewhere classified; C50.919 Malignant neoplasm of unspecified site of unspecified female breast; C91.10 Chronic lymphocytic leukemia of B-cell type not having achieved remission
CPT/HCPCS: 76705

== ENCOUNTER 2024-10-27 13:46 | Outpatient (RCR) | payer BC, SELFPAY ==
--- NOTE | 2024-09-30 15:29 | ONC.NURNOTE ---
Plastic Surgery Consult Referral for mastopexy sent in [place] system per Jyoti Prater PA-C earlier this month. Spoke with [facility] to confirm they have the info they need. They have the referral; pt is on the waitlist for an opening. She has been on the waitlist since 03/2024. Per schedulers, pt will be automatically notified of cancellations with a window to accept appt if she establishes a [facility] Patient Portal. Schedulers also update that some of their surgeons are not practicing right now, so the waitlist is commonly 6-8 mo, but that should improve later this year. LM with Plastics # for pt to call to give email address to set up [facility] portal: [phone].
[2024-10-27 14:15] LABS: Hematocrit 41.5 % (33.0-51.0); Hemoglobin* 13.8 gm/dL (12.0-16.0); Immature Granulocytes Abs Auto 0.07 K/uL (0.00-0.30); Immature Granulocytes Pct Auto 0.7 %; Lymphocytes Absolute Auto 3.18 K/uL (0.90-2.90); Mean Corpuscular HGB Conc 33 gm/dL (32-36); Mean Corpuscular Hemoglobin 29 pg (26-34); Mean Corpuscular Volume 87 fL (80-100); RDW Coefficient of Variation % 12.9 % (11.5-15.5); Red Blood Count 4.79 m/uL (4.00-5.20); White Blood Count* 9.77 K/uL (4.50-11.00)
[2024-10-27 14:25] LABS: Albumin* 4.5 g/dL (3.3-5.0); Chloride* 103 mmol/L (96-114); Slide Review Reflex No
[2024-10-27 14:26] LABS: Potassium* 3.6 mmol/L (3.6-5.1); Sodium* 139 mmol/L (135-149)
[2024-10-27 14:28] LABS: Anion Gap 10 mEq/L (7-15); Aspartate Amino Transferase* 28 U/L (12-35); Bilirubin Total* 0.4 mg/dL (0.1-1.5); Carbon Dioxide* 26 mmol/L (20-32); Creatinine* 0.7 mg/dL (0.5-1.5); Estimated Glomerular Filt Rate 101 ml/min
[2024-10-27 14:29] LABS: Alanine Aminotransferase* 48 U/L (4-35); Alkaline Phosphatase* 103 U/L (40-150); Blood Urea Nitrogen* 12 mg/dL (7-30); Calcium* 9.0 mg/dL (8.4-10.6); Glucose* 111 mg/dL (60-115); Total Protein* 7.3 g/dL (6.0-8.3)
== END 2025-04-25 23:59 | disposition home or self-care (01) ==
LOC: CCIC 13:46
PROVIDERS: PCP Family Medicine; Referring Provider Nurse Practitioner Family; Visit Provider Physician Assistant
DX: C50.912 Malignant neoplasm of unspecified site of left female breast (principal); Z17.0 Estrogen receptor positive status [ER+]; C91.10 Chronic lymphocytic leukemia of B-cell type not having achieved remission; R23.2 Flushing; R79.89 Other specified abnormal findings of blood chemistry; K76.0 Fatty (change of) liver, not elsewhere classified; Z79.811 Long term (current) use of aromatase inhibitors
CPT/HCPCS: 36415; 80053; 83615; 85025; 99215; G0463

== ENCOUNTER 2025-04-21 08:09 | Outpatient (CLI) | payer BC, SELFPAY ==
--- NOTE | 2025-04-21 08:15 | CRLHL7_ITS ---
For Patients: As a result of the Century Cures Act, medical imaging exams and procedure reports are released immediately into your electronic medical record. You may view this report before your referring provider. If you have questions, please contact your health care provider. INDICATION: BILATERAL SCREENING MAMMOGRAM, ASYMPTOMATIC 54 Y/O FEMALE COMPARISON: 02/09/2024, 09/11/2022, 07/03/2021 TECHNIQUE: Digital mammogram in CC and MLO projections including computer-aided detection (CAD) and tomosynthesis. BREAST COMPOSITION: The breasts are heterogeneously dense, which may obscure small masses. FINDINGS: No suspicious findings. ASSESSMENT: BI-RADS 2 Benign RECOMMENDATION: Annual screening mammogram. A lay language report of this examination will be provided to the patient. Dictated by: Neptali Shane MD @ 04/21/2025 09:35:50 (Electronically Signed)
== END 2025-04-21 08:10 | disposition home or self-care (01) ==
LOC: MAMMO 08:09
PROVIDERS: PCP Family Medicine; Visit Provider Family Medicine
DX: Z12.31 Encounter for screening mammogram for malignant neoplasm of breast (principal); R92.333 Mammographic heterogeneous density, bilateral breasts
CPT/HCPCS: 77063; 77067